=== PATIENT | female | born 1970 | race Caucasian/White ===

== ENCOUNTER 2017-01-15 16:20 | Emergency (ER) | payer BC ==
[2017-01-15 16:48] VITALS: BP 127/76
--- NOTE | 2017-01-15 16:59 | UC ---
Back Pain HPI - HPI Summary HPI Summary: 46 yo female with chronic low back pain had acute worsening of back pain about 4 days ago maybe due to pushing a pt up a ramp in a wheel chair now with severe right leg pain radiation down from buttock to little toe leg pain much greater than back pain no bowel/bladder dysfunction no hx ca - History of Current Complaint Chief Complaint: UCBackPain Stated Complaint: LOWER BACK PAIN Time Seen by Provider: 01/15/17 16:58 Hx Last Menstrual Period: 01/08/17 Onset/Duration: Sudden Onset, Lasting Days Timing: Constant Severity Initially: Severe Severity Currently: Severe Pain Intensity: 8 Pain Scale Used: 0-10 Numeric Back Pain: Is Diffuse, Radiates To - right little toe Character: Sharp Aggravating: Movement Alleviating: Rest Associated Signs And Symptoms: Positive: Negative Related History: Previous Back Injury - Allergies/Home Medications Allergies/Adverse Reactions: Allergies Allergy/AdvReac Type Severity Reaction Status Date / Time Morphine Allergy Intermediate rash, GI Verified 01/15/17 16:48 PMH/Surg Hx/FS Hx/Imm Hx Previously Healthy: Yes Endocrine History Of: Denies: Diabetes Cardiovascular History Of: Denies: Hypertension, Congestive Heart Failure GI/ History Of: Reports: Renal Disease - CHRONIC - Surgical History Surgical History: Yes Surgery Procedure, Year, and Place: LEFT ULNAR REPAIR. TONSILECTOMY - Family History Known Family History: Positive: Renal Disease - IgA nephropathy, Other - mom had a PE - Social History Alcohol Use: Occasionally Substance Use Type: None Smoking Status (MU): Light Every Day Tobacco Smoker Type: Cigarettes Amount Used/How Often: 1/2 ppd Household Exposure Type: Cigarettes - Immunization History Most Recent Influenza Vaccination: [id number] Review of Systems Constitutional: Negative Skin: Negative Eyes: Negative ENT: Negative Respiratory: Negative Cardiovascular: Negative Gastrointestinal: Negative Genitourinary: Negative Motor: Negative Neurovascular: Negative Musculoskeletal: Arthralgia, Myalgia Neurological: Negative Psychological: Negative All Other Systems Reviewed And Are Negative: Yes Physical Exam Triage Information Reviewed: Yes Appearance: Well-Appearing, Well-Nourished, Pain Distress Vital Signs: Initial Vital Signs Temp 98.7 F 01/15/17 16:43 Pulse 83 01/15/17 16:43 Resp 16 01/15/17 16:43 BP 127/76 01/15/17 16:43 Pulse Ox 100 01/15/17 16:43 Vital Signs Reviewed: Yes Eyes: Positive: Conjunctiva Clear ENT: Positive: Hearing grossly normal. Negative: Nasal congestion, Nasal drainage, Trismus, Muffled/hoarse voice Neck: Positive: Supple, Nontender, No Lymphadenopathy Respiratory: Positive: Lungs clear, Normal breath sounds, No respiratory distress, No accessory muscle use Cardiovascular: Positive: RRR, No Murmur, Pulses Normal Bowel Sounds: Positive: Present Musculoskeletal: Positive: No Edema, Other: - +R SLR Neurological: Positive: Alert, Muscle Tone Normal, Other: - decrease right ankle jerk Psychological Exam: Normal Skin Exam: Normal Back Pain Course/Dx - Differential Dx/Diagnosis Provider Diagnoses: acute right sciatica. chronic low back pain Discharge - Discharge Plan Condition: Stable Disposition: HOME Prescriptions: Cyclobenzaprine TAB* [Flexeril TAB*] 5 mg PO TID PRN #21 tab PRN Reason: Spasms HYDROcodone/ACETAMIN 5-325 MG* [[place] 5-325 TAB*] 1 tab PO Q4H PRN #14 tab MDD 2 PRN Reason: Pain - Severe Methylprednisolone [Medrol Dosepak 4 MG*] 0 mg PO .SEE JEANINE INSTRUCTION #1 tab Patient Education Materials: Sciatica (ED) Referrals: Sonja Garcia MD [Primary Care Provider] - As Soon As Possible Additional Instructions: get recheck with your MD later this week or early next you may need an MRI
== END 2017-01-15 17:20 | disposition home or self-care (01) ==
LOC: UCCORT 16:20
DX: M54.41 Lumbago with sciatica, right side (principal); N18.9 Chronic kidney disease, unspecified; Z88.5 Allergy status to narcotic agent; F17.210 Nicotine dependence, cigarettes, uncomplicated
CPT/HCPCS: 99212; G0463